=== PATIENT | female | born 1970 | race Caucasian/White ===

== ENCOUNTER → 2020-09-23 | Outpatient (CLI) | payer OTHER ==
[~2020-09-23] MED LIST: ARIPIPRAZOLE10 MG PO; BREO ELLIPTA 11 EACH INH; BUSPIRONE HCL15 MG PO; ESCITALOPRAM OX20 MG PO; GUMMI BEAR MUL1 EAC1 PO; HYDROXYZINE PAM50 MG PO; MELOXICAM15 MG PO; OMEPRAZOLE40 MG PO; PROAIR HFA8.5 GM INH; VITAMIN D350 MC3 PO
== END ==
LOC: LAB 12:01
PROVIDERS: ATTEND Orthopaedic Surgery Foot and Ankle Surgery
DX: Z01.812 Encounter for preprocedural laboratory examination (principal); Z20.828 Contact with and (suspected) exposure to other viral communicable diseases

== ENCOUNTER 2020-09-28 06:07 | Day surgery (SDC) | payer OTHER ==
[~2020-09-28] VITALS: Ht 167.6 cm; Wt 161.0 kg
[2020-09-28 06:42] VITALS: BP 147/89
[2020-09-28] MEDS ORDERED: PERCOCET 7.5-31 EAC1 PO (08:58)
[2020-09-28] MEDS ORDERED: ASPIRIN325 PO (08:59)
[2020-09-28 09:26] VITALS: BP 147/89
--- NOTE | 2020-10-02 18:18 | O ---
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 PROCEDURES: 1. Left foot hardware removal. 2. Left foot revision third TMT joint arthrodesis. SURGEON: Dr. Noel Srinivasan. BUSINESS PROCESS ENGINEER: Sangita Barrow. ANESTHESIA: General. ESTIMATED BLOOD LOSS: Minimal. DRAINS: No drains. TOURNIQUET TIME: Approximately 1 hour. DESCRIPTION OF PROCEDURE: The patient brought to the operating room where she was placed under general anesthesia. Once under adequate general anesthesia, her left lower extremity was prepped and draped in sterile manner. The extremity was elevated, exsanguinated, and tourniquet placed 350 mmHg. A dorsal incision over the patient's previous scar which was then extended both proximally and distally was then made. This was dissected down through the soft tissue to the dorsum of the foot where the previous hardware was located. The patient did have a bony overgrowth, which had to be removed from the plate dorsally with a rongeur. The screws were then identified and subsequently extracted with a screwdriver and the hardware was then completely removed. Once removed, the third TMT joint was identified and prepared with osteotomes and a drill to get bleeding subchondral bone. Demineralized bone matrix allograft was then placed into the joint as well. Fixation across the joint was achieved with two 4.0 cannulated screws along with a dorsal locking Synthes plate from the foot tray. Fluoroscopy was used throughout to verify the alignment. Once [facility] [address] [place] [address] OPERATIVE REPORT Name: HARRISONANNIKA Room #: DEP [facility] M.R.#: [id number] Admission: 09/28/20 Attend Phys: Noel Srinivasan MD Discharge: 09/28/20 Date of : 74 Report #: [id number] complete, excellent fixation and alignment was achieved as verified under fluoroscopy. The wound was irrigated copiously and closed with 2-0 Vicryl in subcutaneous tissues and kristan were used for the skin. The wounds were dressed with Xeroform, 4 x 4s, and a sterile soft compressive dressing with a short leg cast was placed. Tourniquet was let down twice during the procedure for a total of approximately one hour. Toes were pink and warm with good capillary refill. There were no complications from the procedure. The patient tolerated the procedure well and went to recovery room without incident. <ELECTRONICALLY SIGNED> By: Noel Srinivasan MD 10/02/20 [id number] Noel Srinivasan MD /nt
== END 2020-09-28 09:28 | disposition home or self-care (01) ==
LOC: TBA 06:07 → OR 06:07
PROVIDERS: ATTEND Orthopaedic Surgery Foot and Ankle Surgery
DX: M19.072 Primary osteoarthritis, left ankle and foot (principal); M96.0 Pseudarthrosis after fusion or arthrodesis; F32.9 Major depressive disorder, single episode, unspecified; F41.9 Anxiety disorder, unspecified; G47.30 Sleep apnea, unspecified; K21.9 Gastro-esophageal reflux disease without esophagitis; Z98.890 Other specified postprocedural states; Z90.710 Acquired absence of both cervix and uterus; Z90.49 Acquired absence of other specified parts of digestive tract; Z79.899 Other long term (current) drug therapy; Z88.0 Allergy status to penicillin; Z88.8 Allergy status to other drugs, medicaments and biological substances
CPT/HCPCS: 50010; 50101; 50386; 51008; 51122; 51412; 56524; 57091; 57181; 58118; 62110; 62900; 70005